=== PATIENT | female | born 1935 | race Hispanic/Latino ===

== ENCOUNTER 2019-04-29 11:17 | Emergency (ER) | payer MEDICARE, OTHER ==
--- NOTE | 2019-04-29 12:08 | RAD ---
EXAM: XR Shoulder Rt 3 View STANDARD PROVIDED CLINICAL HISTORY: Pain FINDINGS: There is no evidence for fracture or other acute osseous abnormality. Alignment appears anatomic. Lelo nt spaces appear preserved. Rounded density is demonstrated in the right infrahilar region, incompletely characterized on the basis of this study. IMPRESSION: 1. No evidence for an acute osseous abnormality. If there is persistent clinical concern, conservativ e management and follow-up imaging advised. 2. Abnormal appearance of the right hilum. Correlation with follow-up PA and lateral views of the [address] recommended.
--- NOTE | 2019-04-29 12:20 | CT ---
EXAM: CT cervical spine PROVIDED CLINICAL HISTORY: Pain COMPARISON: None FINDINGS: No evidence for fracture or traumatic subluxation. No prevertebral soft tissue swelling apparent. Vi sualized lung apices appear clear. Cervical degenerative changes are seen. IMPRESSION: No evidence for fracture or traumatic subluxation.
[2019-04-29] MEDS ORDERED: Acetaminophen 500 MG TAB ONE (12:32)
--- NOTE | 2019-04-29 14:13 | RAD ---
CHEST 2 VIEWS: HISTORY: Shoulder pain. COMPARISON: Shoulder radiograph same day. FINDINGS: The pulmonary arteries are dilated likely given the appearance of the enlarged hilar stranding on the prior shoulder exam. Some scarring within the lingula. Heart size is enlarged. Dense calcificatio ns of the aorta. Tendon suture anchors of the left humeral head. IMPRESSION: Giving the appearance of the shoulder radiographs, there is an enlarged pulmonary artery suggesting p ulmonary artery hypertension. POS: HOME
== END 2019-04-29 14:10 | disposition home or self-care (01) ==
LOC: ERS 11:17
DX: M25.511 Pain in right shoulder (principal); I10 Essential (primary) hypertension; E78.00 Pure hypercholesterolemia, unspecified
CPT/HCPCS: 71046; 72125; 94760

== ENCOUNTER 2021-01-24 23:38 | Inpatient (IN) | payer MEDICARE, OTHER ==
[2021-01-25] MEDS ORDERED: Morphine 4 MG/ML VIAL ONE ×4 (00:26→11:01)
[2021-01-25] MEDS ORDERED: Ondansetron PF 4 MG/2 ML Vial ONE ×2 (00:26→08:25)
[2021-01-25 00:47] LABS: Mean Corpuscular HGB CONC 33.4 g/dL (32.0-36.0); Mean Corpuscular Hemoglobin 31.2 pg (27.0-31.0); Mean Corpuscular Volume 93.6 fL (78.0-98.0); Mean Platelet Volume 8.6 fL (7.4-10.4); Platelet Count 294 thou/uL (130-400); RBC Distribution Width 13.3 % (11.5-14.5)
[2021-01-25 01:05] LABS: Band 15 % (5-11); Lymphocytes 18 % (21-51); MDiff Complete? YES; Monocytes 3 % (0-10); Neutrophil 64 % (42-75)
[2021-01-25 01:06] LABS: ALT (SGPT) 16 U/L (8-55); AST (SGOT) 17 U/L (5-34); Albumin 3.8 g/dL (3.4-4.8); Alkaline Phosphatase 39 U/L (40-110); Anion Gap 15 mmol/L (10-20); BUN (Urea Nitrogen) 29 mg/dL (9.8-20.1); Bilirubin, Total 0.6 mg/dL (0.2-1.2); Calc. Creatinine Clearance 0 mL/min (70-130); Calcium 9.5 mg/dL (7.8-10.44); Carbon Dioxide 25 mmol/L (23-31); Chloride 97 mmol/L (98-107); Globulin 2.7 g/dL (2.4-3.5); Glucose 184 mg/dL (83-110); Lipase 26 U/L (8-78); Potassium 3.5 mmol/L (3.5-5.1); Protein, Total 6.5 g/dL (5.8-8.1); Sodium 133 mmol/L (136-145)
[2021-01-25 01:12] LABS: Bilirubin Negative (Negative); Blood, Urine Negative (Negative); Clarity Clear (Clear); Glucose, Urine (Dipstick) Normal (Negative); Ketone, Urine Trace mg/dL (Negative); Leukocyte Negative Leu/uL (Negative); Nitrite Negative (Negative); Protein, Urine (Dipstick) 10 mg/dL (Neg-Trace); Specific Gravity, Urine 1.022 (1.002-1.036); Urobilinogen Normal mg/dL (Less than 2); pH, Urine 6.5 (5.0-9.0)
[2021-01-25] MEDS ORDERED: Piperacillin/Tazobactam 3.375 GM VIAL ONE (02:47)
[2021-01-25 03:28] LABS: SARS-CoV-2 NAA Rapid Test Not Detected (NotDetected)
[2021-01-25] MEDS ORDERED: Ondansetron PF 4 MG/2 ML Vial IVP PRN (04:15)
[2021-01-25] MEDS ORDERED: Ondansetron ODT 4 MG TAB SL PRN (04:15)
[2021-01-25] MEDS ORDERED: Morphine 4 MG/ML VIAL SLOW IVP PRN (04:16)
[2021-01-25] MEDS: Sodium Chloride 0.9% 1,000 ML IV SCH ×2 (04:48→14:40)
[2021-01-25 04:52] VITALS: BMI 29.5
[2021-01-25] MEDS ORDERED: Famotidine/PF 20 mg/2ml Vial ONE (07:44)
[2021-01-25] MEDS ORDERED: Phenylephrine 10 MG/ML VIAL ONE (07:44)
[2021-01-25] MEDS ORDERED: Fentanyl 100 MCG/2 ML VIAL ONE ×3 (07:44→10:07)
[2021-01-25] MEDS ORDERED: Sodium Chloride 0.9% 100 ML ONE (08:04)
[2021-01-25] MEDS ORDERED: ceFOXitin 1 GM VIAL ONE (08:04)
[2021-01-25] MEDS ORDERED: Succinylcholine 200 MG/10 ml SYRINGE FS ONE (08:25)
[2021-01-25] MEDS ORDERED: Rocuronium Bromide 10 MG/ML (10ML VIAL) ONE (08:25)
[2021-01-25] MEDS ORDERED: PHENYLEPHRINE-NS 100 MCG/ML 10 ML SYRINGE ONE (08:25)
[2021-01-25] MEDS ORDERED: PROPOFOL 200 MG/20 ML VIAL ONE (08:25)
[2021-01-25] MEDS ORDERED: Lidocaine 1% PF 5 ML VIAL ONE (08:25)
[2021-01-25] MEDS ORDERED: Dexamethasone 20 MG/5 ML VIAL ONE (08:25)
[2021-01-25] MEDS ORDERED: Albumin 5% 500 ML ONE (08:34)
[2021-01-25] MEDS ORDERED: SUGAMMADEX SODIUM 500 MG/5 ML VIAL ONE (09:01)
[2021-01-25] MEDS ORDERED: Promethazine HCl 25 MG/ML VIAL IM PRN ×2 (09:29→09:59)
[2021-01-25] MEDS ORDERED: Fentanyl 100 MCG/2 ML VIAL SLOW IVP PRN (09:31)
[2021-01-25] MEDS ORDERED: PACU-Morphine 4MG/ML VIAL SLOW IVP PRN (09:59)
[2021-01-25] MEDS ORDERED: Promethazine HCl 25 MG/ML VIAL SLOW IVP PRN (09:59)
[2021-01-25] MEDS ORDERED: Iopamidol-370 76% 500 ML 1 ML ONE (10:14)
[2021-01-25] MEDS: D5 1/2 NS w/20 mEq KCL 1,000 ML IV SCH ×2 (12:14→14:07)
[2021-01-25] MEDS: Piperacillin/Tazobactam 2.25 GM in Sodium Chloride 0.9% 100 ML IVPB SCH ×2 (14:06→21:26)
[2021-01-25] MEDS: Famotidine 20 MG TAB PO SCH (20:28)
[2021-01-25] MEDS: Fentanyl 100 MCG/2 ML VIAL SLOW IVP PRN (20:47)
[2021-01-25] MEDS: Famotidine/PF 20 mg/2ml Vial SLOW IVP SCH (20:52)
[2021-01-25] MEDS: Enoxaparin Sodium 40 MG/0.4 ML SYRINGE SC SCH (20:52)
[2021-01-26] MEDS: D5 1/2 NS w/20 mEq KCL 1,000 ML IV SCH ×2 (00:27→16:30)
[2021-01-26 04:29] LABS: Anion Gap 12 mmol/L (10-20); BUN (Urea Nitrogen) 19 mg/dL (9.8-20.1); Calc. Creatinine Clearance 41 mL/min (70-130); Calcium 7.9 mg/dL (7.8-10.44); Carbon Dioxide 23 mmol/L (23-31); Chloride 105 mmol/L (98-107); Glucose 169 mg/dL (83-110); Potassium 4.4 mmol/L (3.5-5.1); Sodium 136 mmol/L (136-145)
[2021-01-26] MEDS: Fentanyl 100 MCG/2 ML VIAL SLOW IVP PRN ×4 (04:48→20:24)
[2021-01-26 04:56] LABS: Band 52 % (5-11); Hemoglobin 11.6 g/dL (12.0-16.0); Lymphocytes 4 % (21-51); MDiff Complete? YES; Mean Corpuscular HGB CONC 33.9 g/dL (32.0-36.0); Mean Corpuscular Hemoglobin 31.9 pg (27.0-31.0); Mean Platelet Volume 8.7 fL (7.4-10.4); Monocytes 2 % (0-10); Neutrophil 42 % (42-75); Platelet Count 192 thou/uL (130-400); RBC Distribution Width 13.3 % (11.5-14.5); Red Blood Cell (RBC) Count 3.65 mill/uL (4.20-5.40); White Blood Cell (WBC) Count 11.7 thou/uL (4.8-10.8)
[2021-01-26] MEDS: Piperacillin/Tazobactam 2.25 GM in Sodium Chloride 0.9% 100 ML IVPB SCH ×3 (05:16→21:14)
[2021-01-26] MEDS: Famotidine/PF 20 mg/2ml Vial SLOW IVP SCH ×2 (08:04→20:25)
[2021-01-26] MEDS ORDERED: Fentanyl 100 MCG/2 ML VIAL SLOW IVP PRN (09:16)
[2021-01-26] MEDS: Famotidine 20 MG TAB PO SCH ×2 (11:55→20:25)
[2021-01-26] MEDS: Enoxaparin Sodium 40 MG/0.4 ML SYRINGE SC SCH (20:25)
[2021-01-26] MEDS: Nystatin Powder 15 GM BOT TOP SCH (20:35)
[2021-01-27] MEDS: D5 1/2 NS w/20 mEq KCL 1,000 ML IV SCH ×2 (00:47→14:21)
[2021-01-27] MEDS: Fentanyl 100 MCG/2 ML VIAL SLOW IVP PRN ×4 (05:14→21:10)
[2021-01-27] MEDS ORDERED: Piperacillin/Tazobactam 2.25 GM VIAL ONE (05:18)
[2021-01-27] MEDS: Piperacillin/Tazobactam 2.25 GM in Sodium Chloride 0.9% 100 ML IVPB SCH ×3 (05:22→21:07)
[2021-01-27] MEDS: Famotidine/PF 20 mg/2ml Vial SLOW IVP SCH ×2 (08:37→21:07)
[2021-01-27] MEDS: Nystatin Powder 15 GM BOT TOP SCH ×2 (09:03→22:42)
[2021-01-27] MEDS: Famotidine 20 MG TAB PO SCH ×2 (09:03→20:49)
[2021-01-27] MEDS: Enoxaparin Sodium 40 MG/0.4 ML SYRINGE SC SCH (21:06)
[2021-01-27] MEDS ORDERED: Naloxone HCl 0.4 mg/ml Vial IV PRN (22:16)
[2021-01-27] MEDS ORDERED: diphenhydrAMINE 50 MG/ML VIAL IVP PRN (22:16)
[2021-01-27] MEDS ORDERED: diphenhydrAMINE 50 MG/ML VIAL IM PRN (22:16)
[2021-01-27] MEDS ORDERED: Ondansetron PF 4 MG/2 ML Vial IVP PRN (22:16)
[2021-01-27] MEDS ORDERED: Promethazine HCl 25 MG/ML VIAL IM PRN (22:16)
[2021-01-27] MEDS ORDERED: Zolpidem Tartrate 5 MG TAB PO PRN (22:16)
[2021-01-27] MEDS ORDERED: diphenhydrAMINE 25 MG CAP PO PRN (22:16)
[2021-01-27] MEDS ORDERED: Communication Order-Pharmacy FS SCH (22:30)
[2021-01-27] MEDS: fentaNYL Citrate/PF 2,000 MCG in Sodium Chloride 0.9% 60 ML IV PRN (22:57)
[2021-01-28] MEDS: D5 1/2 NS w/20 mEq KCL 1,000 ML IV SCH ×3 (00:05→21:38)
[2021-01-28] MEDS: Ondansetron PF 4 MG/2 ML Vial IVP PRN ×2 (01:09→14:51)
[2021-01-28] MEDS: Piperacillin/Tazobactam 2.25 GM in Sodium Chloride 0.9% 100 ML IVPB SCH ×3 (05:59→20:48)
[2021-01-28] MEDS: Famotidine 20 MG TAB PO SCH ×2 (08:48→20:42)
[2021-01-28] MEDS ORDERED: Milk Of Magnesia 30 ML UDCUP PO SCH (09:15)
[2021-01-28] MEDS ORDERED: D5 1/2 NS w/20 mEq KCL 1,000 ML IV SCH (09:15)
[2021-01-28] MEDS: Famotidine/PF 20 mg/2ml Vial SLOW IVP SCH ×2 (10:39→20:41)
[2021-01-28] MEDS: Nystatin Powder 15 GM BOT TOP SCH ×2 (16:00→20:42)
[2021-01-28] MEDS: hydrALAZINE 20 MG/ML VIAL SLOW IVP PRN (20:41)
[2021-01-28] MEDS: Enoxaparin Sodium 40 MG/0.4 ML SYRINGE SC SCH (20:41)
[2021-01-29] MEDS: Piperacillin/Tazobactam 2.25 GM in Sodium Chloride 0.9% 100 ML IVPB SCH ×3 (05:07→21:01)
[2021-01-29 05:43] LABS: #Basophils 0.1 thou/uL (0.0-0.2); #Eosinphils 0.2 thou/uL (0.0-0.7); #Lymphocytes 1.2 thou/uL (1.20-3.40); #Monocytes 0.4 thou/uL (0.11-0.59); #Neutrophils 6.6 thou/uL (1.40-6.50); %Basophils 0.7 % (0.0-1.0); %Eosinophils 2.6 % (0.0-10.0); %Lymphocytes 13.6 % (21.0-51.0); %Monocytes 4.7 % (0.0-10.0); %Neutrophils 78.4 % (42.0-75.0); Hemoglobin 10.3 g/dL (12.0-16.0); Mean Corpuscular HGB CONC 33.4 g/dL (32.0-36.0); Mean Corpuscular Hemoglobin 31.3 pg (27.0-31.0); Mean Corpuscular Volume 93.8 fL (78.0-98.0); Mean Platelet Volume 8.2 fL (7.4-10.4); Platelet Count 193 thou/uL (130-400); RBC Distribution Width 13.1 % (11.5-14.5); Red Blood Cell (RBC) Count 3.27 mill/uL (4.20-5.40); White Blood Cell (WBC) Count 8.5 thou/uL (4.8-10.8)
[2021-01-29 05:55] LABS: Anion Gap 10 mmol/L (10-20); BUN (Urea Nitrogen) 13 mg/dL (9.8-20.1); Calc. Creatinine Clearance 62 mL/min (70-130); Calcium 8.1 mg/dL (7.8-10.44); Carbon Dioxide 24 mmol/L (23-31); Chloride 106 mmol/L (98-107); Glucose 109 mg/dL (83-110); Potassium 3.6 mmol/L (3.5-5.1); Sodium 136 mmol/L (136-145)
[2021-01-29] MEDS: Famotidine/PF 20 mg/2ml Vial SLOW IVP SCH ×2 (08:38→21:01)
[2021-01-29] MEDS: Nystatin Powder 15 GM BOT TOP SCH ×2 (08:39→21:01)
[2021-01-29] MEDS: Famotidine 20 MG TAB PO SCH ×2 (08:39→21:01)
[2021-01-29] MEDS: fentaNYL Citrate/PF 2,000 MCG in Sodium Chloride 0.9% 60 ML IV PRN (10:01)
[2021-01-29] MEDS ORDERED: Milk Of Magnesia 30 ML UDCUP PO SCH (11:15)
[2021-01-29] MEDS: hydrALAZINE 20 MG/ML VIAL SLOW IVP PRN (16:16)
[2021-01-29] MEDS: Ondansetron PF 4 MG/2 ML Vial IVP PRN (16:17)
[2021-01-29] MEDS: D5 1/2 NS w/20 mEq KCL 1,000 ML IV SCH (17:01)
[2021-01-29] MEDS: Enoxaparin Sodium 40 MG/0.4 ML SYRINGE SC SCH (21:01)
[2021-01-30] MEDS: Piperacillin/Tazobactam 2.25 GM in Sodium Chloride 0.9% 100 ML IVPB SCH ×3 (06:25→22:49)
[2021-01-30] MEDS: Famotidine 20 MG TAB PO SCH ×2 (08:16→20:29)
[2021-01-30] MEDS: Famotidine/PF 20 mg/2ml Vial SLOW IVP SCH ×2 (08:27→20:30)
[2021-01-30] MEDS: Nystatin Powder 15 GM BOT TOP SCH ×2 (08:27→20:29)
[2021-01-30] MEDS: D5 1/2 NS w/20 mEq KCL 1,000 ML IV SCH (14:07)
[2021-01-30] MEDS ORDERED: HYDROcodone/Acetaminophen 7.5/325 mg Tablet PO PRN (15:07)
[2021-01-30] MEDS ORDERED: Polyethylene Glycol 3350 17 GM Packet PO SCH (15:15)
[2021-01-30] MEDS: Enoxaparin Sodium 40 MG/0.4 ML SYRINGE SC SCH (20:29)
[2021-01-31] MEDS: Piperacillin/Tazobactam 2.25 GM in Sodium Chloride 0.9% 100 ML IVPB SCH ×2 (05:29→14:21)
[2021-01-31] MEDS ORDERED: Polyethylene Glycol 3350 17 GM Packet PO SCH (09:00)
[2021-01-31] MEDS: Famotidine 20 MG TAB PO SCH (09:36)
[2021-01-31] MEDS: Nystatin Powder 15 GM BOT TOP SCH (09:56)
[2021-01-31] MEDS: Famotidine/PF 20 mg/2ml Vial SLOW IVP SCH (09:56)
[2021-01-31 14:09] VITALS: BP 165/75; TEMP 98.2
== END 2021-01-31 14:41 | DRG 330 ==
LOC: ERS 23:38 → SJJU 01-25 02:41 → CCU 01-25 13:08 → SURG A 01-26 11:39
PROVIDERS: ADMIT Surgery; ATTEND Surgery
PROC: 0DBN0ZZ Excision of Sigmoid Colon, Open Approach (ICD-10-PCS; principal; 2021-01-25)
PROC: 0D1N0Z4 Bypass Sigmoid Colon to Cutaneous, Open Approach (ICD-10-PCS; 2021-01-25)
DX: K63.1 Perforation of intestine (nontraumatic) (principal); K56.7 Ileus, unspecified; Z20.822 Contact with and (suspected) exposure to COVID-19; E78.00 Pure hypercholesterolemia, unspecified; I10 Essential (primary) hypertension; Z96.653 Presence of artificial knee joint, bilateral; Z96.619 Presence of unspecified artificial shoulder joint; E78.5 Hyperlipidemia, unspecified; Z88.5 Allergy status to narcotic agent; Z79.899 Other long term (current) drug therapy
CPT/HCPCS: 36415; 51701; 71045; 74177; 80048; 80053; 81003; 83605; 83690; 84484; 85025; 88307; 93005; 96365; 96375; 96376; J0360; J0694; J1100; J1650; J2270; J2370; J2405; J2543; J2550; J2704; J3010; J3480; J3490; P9045; Q9967; S0028; U0002; U0005